=== PATIENT | female | born 1995 | race Two or more races ===

== ENCOUNTER → 2022-10-29 | Outpatient (REF) | payer OTHER | LOC: M SFHCWAGY 16:49 | PROVIDERS: ATTEND Nurse Practitioner Family | DX: Z12.4 Encounter for screening for malignant neoplasm of cervix (principal) ==

== ENCOUNTER → 2023-02-09 | Outpatient (CLI) | payer OTHER ==
[2023-02-09 13:54] LABS: BASO % 0.4 % (0.0-1.0); EOS # 0.2 10^3/uL (0.0-0.5); EOS % 2.9 % (0.0-3.0); HEMATOCRIT 43.4 % (36.0-47.0); HEMOGLOBIN 13.9 g/dl (12.0-15.5); LYMPH # 2.8 10^3/uL (1.5-5.0); LYMPH % 41.2 % (24.0-44.0); MEAN CORPUSCULAR HEMOGLOBIN 28.7 pg (27.0-33.0); MEAN CORPUSCULAR VOLUME 89.5 fl (80.0-96.0); MONO # 0.6 10^3/uL (0.0-0.8); MONO % 9.1 % (2.0-8.0); NEUTROPHILS # 3.1 10^3/uL (1.5-8.5); NEUTROPHILS % 46.1 % (36.0-66.0); PLATELET COUNT, AUTOMATED 267 10^3/uL (150-450); RED BLOOD COUNT 4.85 10^6/uL (4.00-5.40); WHITE BLOOD COUNT 6.8 10^3/uL (4.0-10.0)
[2023-02-09 13:56] LABS: THYROID STIMULATING HORMONE 1.821 uIU/ML (0.55-4.78)
[2023-02-09 13:57] LABS: ALBUMIN 4.1 G/DL (3.2-5.2); ALKALINE PHOSPHATASE 45 U/L (46-116); ALT/SGPT 12 U/L (7.0-40); AST/SGOT < 8 U/L (<34); BILIRUBIN,TOTAL 0.6 MG/DL (0.3-1.2); BLOOD UREA NITROGEN 14 MG/DL (9-23); CALCIUM LEVEL 8.8 MG/DL (8.5-10.1); CARBON DIOXIDE LEVEL 28 MMOL/L (20-31); CHLORIDE LEVEL 104 MMOL/L (98-107); CHOLESTEROL LEVEL 165 MG/DL (<200); CREATININE FOR GFR 0.75 MG/DL (0.55-1.30); FREE T4 0.97 NG/DL (0.89-1.76); GLOMERULAR FILTRATION RATE > 60.0 (>60); GLUCOSE, FASTING 94 MG/DL (60-100); HDL CHOLESTEROL 60.9 MG/DL (>40); LDL CHOLESTEROL 87.5 MG/DL (<100); NON-HDL-C 104.1 MG/DL; POTASSIUM SERUM 4.7 MMOL/L (3.5-5.1); SODIUM LEVEL 138 MMOL/L (136-145); TOTAL 25(OH) VITAMIN D 31.3 NG/ML (20.0-100.0); TRIGLYCERIDES LEVEL 83 MG/DL (<150)
[2023-02-09 13:58] LABS: VITAMIN B12 LEVEL 472 PG/ML (211-911)
== END ==
LOC: M PLAIMG 09:56 → M PLALAB 09:56
PROVIDERS: ATTEND Nurse Practitioner Family
DX: M54.2 Cervicalgia (principal)

== ENCOUNTER → 2023-08-31 | Outpatient (CLI) | payer OTHER | LOC: M WHC 10:12 | PROVIDERS: ATTEND Nurse Practitioner Family | DX: N63.24 Unspecified lump in the left breast, lower inner quadrant (principal) ==

== ENCOUNTER 2023-10-06 07:11 | Day surgery (SDC) | payer OTHER ==
[~2023-10-06] VITALS: Ht 167.6 cm; Wt 62.1 kg
[2023-10-06] MEDS ORDERED: LR 1,000 ML IV SCH ×2 (07:40→10:25)
[2023-10-06] MEDS ORDERED: propofoL 200 MG/20 ML VIAL As Ordered ONE (08:00)
[2023-10-06] MEDS ORDERED: ROCURONIUM BROMIDE 50MG/5ML VIAL As Ordered ONE (08:00)
[2023-10-06] MEDS ORDERED: LIDOCAINE 2% 100MG/5ML SDV (FOR ANES.) As Ordered ONE (08:00)
[2023-10-06] MEDS ORDERED: fentaNYL 100 MCG/2 ML INJECTION As Ordered ONE (08:00)
[2023-10-06] MEDS ORDERED: ONDANSETRON 4MG 2ML VIAL As Ordered ONE (08:00)
[2023-10-06] MEDS ORDERED: MIDAZOLAM INJ 2MG/2ML VIAL As Ordered ONE (08:00)
[2023-10-06] MEDS ORDERED: dexmedeTOMIDine (4MCG/ML)200MCG/50ML BTL (PRECEDEX) As Ordered ONE (08:08)
[2023-10-06] MEDS ORDERED: ACETAMINOPHEN 1000MG 100ML IV BAG As Ordered ONE (08:17)
[2023-10-06] MEDS ORDERED: METHYLENE BLUE 0.5% (5MG/ML) 10 ML AMP (PROVAYBLUE) As Ordered ONE (09:07)
[2023-10-06] MEDS ORDERED: EPINEPHrine 1MG/ML INJ 30ML MD-VIAL As Ordered ONE (09:07)
[2023-10-06] MEDS ORDERED: LIDOCAINE W/EPINEPHRINE 1% 20ML VIAL As Ordered ONE (09:07)
[2023-10-06] MEDS ORDERED: SODIUM CHLORIDE 0.9% NASAL GEL 15GM (AYR) As Ordered ONE (09:07)
[2023-10-06] MEDS ORDERED: SUGAMMADEX SODIUM 500 MG/5 ML VIAL (BRIDION) As Ordered ONE (09:39)
[2023-10-06] MEDS ORDERED: fentaNYL 100 MCG/2 ML INJECTION IV PRN (10:25)
[2023-10-06] MEDS ORDERED: ONDANSETRON 4MG 2ML VIAL IV PRN (10:25)
[2023-10-06] MEDS ORDERED: oxyCODONE 5MG TAB PO PRN (10:25)
[2023-10-06 11:37] VITALS: BP 110/68; TEMP 97.9; O2SAT 97
== END 2023-10-06 11:51 | disposition home or self-care (01) ==
LOC: M SDC 07:11
PROVIDERS: ATTEND Otolaryngology
DX: J34.2 Deviated nasal septum (principal); J34.3 Hypertrophy of nasal turbinates; R09.81 Nasal congestion; Z88.1 Allergy status to other antibiotic agents
CPT/HCPCS: 30520; 30802; 81025; 88300; J0131; J0171; J1100; J2250; J2405; J3010; Q9968

== ENCOUNTER → 2023-10-31 | Outpatient (REF) | payer OTHER | LOC: M SFHCWAGY 13:10 | PROVIDERS: ATTEND Nurse Practitioner Family | DX: Z12.4 Encounter for screening for malignant neoplasm of cervix (principal); Z11.51 Encounter for screening for human papillomavirus (HPV) | CPT/HCPCS: 87624; G0123 ==

== ENCOUNTER → 2023-11-02 | Outpatient (CLI) | payer OTHER | LOC: M WHC 07:47 | PROVIDERS: ATTEND Nurse Practitioner Family | DX: N94.10 Unspecified dyspareunia (principal) ==

== ENCOUNTER → 2023-11-10 | Outpatient (CLI) | payer OTHER ==
[~2023-11-10] MED LIST: PROHANCE 279.3MG/ML 15ML VIAL ONE
== END ==
LOC: M PLAIMG 14:31
PROVIDERS: ATTEND Nurse Practitioner Family
DX: D25.9 Leiomyoma of uterus, unspecified (principal); R93.5 Abnormal findings on diagnostic imaging of other abdominal regions, including retroperitoneum
CPT/HCPCS: 72197; A9576

== ENCOUNTER → 2023-12-07 | Outpatient (REF) | payer OTHER | LOC: M LAB REF 15:35 | PROVIDERS: ATTEND Surgery | DX: L72.3 Sebaceous cyst (principal) ==

== ENCOUNTER 2024-02-27 09:18 | Observation (INO) | payer OTHER ==
[~2024-02-27] VITALS: Ht 167.6 cm; Wt 60.5 kg
[~2024-02-27 09:18] MED LIST changes: +LR 1,000 ML IV SCH; -PROHANCE 279.3MG/ML 15ML VIAL ONE; +VITA-168 PO; +VITA500C24 PO
[2024-02-27] MEDS ORDERED: LR 1,000 ML IV SCH ×2 (09:25→15:50)
[2024-02-27 09:59] LABS: HEMATOCRIT 33.3 % (36.0-47.0); HEMOGLOBIN 10.4 g/dl (12.0-15.5); MEAN CORPUSCULAR HEMOGLOBIN 23.5 pg (27.0-33.0); MEAN CORPUSCULAR HGB CONC 31.2 g/dl (32.0-36.5); MEAN CORPUSCULAR VOLUME 75.3 fl (80.0-96.0); PLATELET COUNT, AUTOMATED 363 10^3/uL (150-450); RED BLOOD COUNT 4.42 10^6/uL (4.00-5.40); WHITE BLOOD COUNT 5.7 10^3/uL (4.0-10.0)
[2024-02-27] MEDS ORDERED: MIDAZOLAM INJ 2MG/2ML VIAL As Ordered ONE (10:24)
[2024-02-27] MEDS ORDERED: LIDOCAINE 2% 100MG/5ML SDV (FOR ANES.) As Ordered ONE (10:24)
[2024-02-27] MEDS ORDERED: fentaNYL 100 MCG/2 ML INJECTION As Ordered ONE (10:24)
[2024-02-27] MEDS ORDERED: ONDANSETRON 4MG 2ML VIAL As Ordered ONE (10:24)
[2024-02-27] MEDS ORDERED: ROCURONIUM BROMIDE 50MG/5ML VIAL As Ordered ONE (10:24)
[2024-02-27] MEDS ORDERED: propofoL 200 MG/20 ML VIAL As Ordered ONE (10:24)
[2024-02-27] MEDS ORDERED: dexmedeTOMIDine (4MCG/ML)200MCG/50ML BTL (PRECEDEX) As Ordered ONE (10:52)
[2024-02-27] MEDS ORDERED: HYDROMORPHONE HCL 0.5 MG/ 0.5 ML SYRINGE IV PRN (11:50)
[2024-02-27] MEDS ORDERED: ONDANSETRON 4MG 2ML VIAL IV PRN ×2 (11:50→15:55)
[2024-02-27] MEDS ORDERED: oxyCODONE 5MG TAB PO PRN (11:50)
[2024-02-27] MEDS ORDERED: fentaNYL 100 MCG/2 ML INJECTION IV PRN (11:50)
[2024-02-27] MEDS: LR 1,000 ML IV SCH ×3 (11:50→15:55)
[2024-02-27] MEDS ORDERED: ACETAMINOPHEN 1000MG 100ML IV BAG As Ordered ONE (12:23)
[2024-02-27] MEDS ORDERED: SUGAMMADEX SODIUM 500 MG/5 ML VIAL (BRIDION) As Ordered ONE (12:35)
[2024-02-27] MEDS ORDERED: KETOROLAC 60MG 2ML VIAL As Ordered ONE (12:35)
[2024-02-27] MEDS ORDERED: ePHEDrine SULFATE 25 MG/5 ML(5MG/ML) SYRINGE As Ordered ONE (15:14)
[2024-02-27] MEDS ORDERED: METOCLOPRAMIDE INJ 10MG/2ML VIAL IV PRN (15:45)
[2024-02-27] MEDS: ONDANSETRON 4MG 2ML VIAL IV PRN (15:50)
[2024-02-27] MEDS: fentaNYL 100 MCG/2 ML INJECTION IV PRN (15:51)
[2024-02-27] MEDS ORDERED: PERCOCET 5MG/325MG TAB PO PRN ×2 (15:55)
[2024-02-27] MEDS: HYDROMORPHONE HCL 0.5 MG/ 0.5 ML SYRINGE IV PRN (16:25)
[2024-02-27] MEDS: oxyCODONE 5MG TAB PO PRN (16:34)
[2024-02-27 17:20] VITALS: BP 115/58; TEMP 98.5; O2SAT 99
[2024-02-27 17:50] VITALS: BP 116/58; TEMP 98.6; O2SAT 100
[2024-02-27 18:50] VITALS: BP 112/59; TEMP 98.4; O2SAT 100
[2024-02-27 20:00] VITALS: BP 110/57; TEMP 99.8; O2SAT 99
[2024-02-27] MEDS: KETOROLAC 30 MG/ML 1ML VIAL IV PRN (20:39)
[2024-02-27] MEDS: DOCUSATE SODIUM 100MG CAPSULE PO SCH (20:39)
[2024-02-27 21:00] VITALS: BP 112/58; TEMP 99.2; O2SAT 99
[2024-02-27 23:00] VITALS: BP 100/58; TEMP 99.4; O2SAT 99
[2024-02-27] MEDS: PERCOCET 5MG/325MG TAB PO PRN (23:48)
[2024-02-28] VITALS (8 sets, daily range): BP systolic 109–124; BP diastolic 57–69; TEMP 98.2–99.7; O2SAT 98–100
[2024-02-28 05:53] LABS: HEMATOCRIT 22.4 % (36.0-47.0); MEAN CORPUSCULAR HEMOGLOBIN 23.7 pg (27.0-33.0); MEAN CORPUSCULAR HGB CONC 31.7 g/dl (32.0-36.5); MEAN CORPUSCULAR VOLUME 74.7 fl (80.0-96.0); WHITE BLOOD COUNT 10.1 10^3/uL (4.0-10.0)
[2024-02-28 05:57] LABS: HEMOGLOBIN 7.1 g/dl (12.0-15.5)
[2024-02-28 05:58] LABS: PLATELET COUNT, AUTOMATED 242 10^3/uL (150-450)
[2024-02-28] MEDS ORDERED: NS 1,000 ML IV SCH (07:40)
[2024-02-28] MEDS ORDERED: HOME MED LIST COMPLETE! XX SCH (11:35)
[2024-02-28] MEDS ORDERED: OXYC1TAB23 PO (13:57)
[2024-02-28] MEDS ORDERED: IBUP-1022 PO (13:57)
[2024-02-28] MEDS ORDERED: COLA100C5 PO (13:57)
== END 2024-02-28 14:40 | disposition home or self-care (01) ==
LOC: M SDC 09:18 → M PED 09:19
PROVIDERS: ADMIT Specialist; ATTEND Specialist
DX: N93.9 Abnormal uterine and vaginal bleeding, unspecified (principal); R10.2 Pelvic and perineal pain; D25.9 Leiomyoma of uterus, unspecified; Z88.1 Allergy status to other antibiotic agents; Z91.018 Allergy to other foods
CPT/HCPCS: 36415; 36430; 58546; 81025; 85027; 86850; 86900; 86901; 86920; 88305; 96375; 96376; J0131; J0665; J1100; J1170; J1885; J2250; J2405; J3010; P9016; S2900

== ENCOUNTER → 2024-04-25 | Outpatient (CLI) | payer OTHER ==
[~2024-04-25] MED LIST changes: +COLA100C5 PO; +IBUP-1022 PO; -LR 1,000 ML IV SCH; +OXYC1TAB23 PO
[2024-04-25 12:56] LABS: HEMATOCRIT 35.7 % (36.0-47.0); HEMOGLOBIN 10.9 g/dl (12.0-15.5); MEAN CORPUSCULAR HEMOGLOBIN 22.9 pg (27.0-33.0); MEAN CORPUSCULAR HGB CONC 30.5 g/dl (32.0-36.5); MEAN CORPUSCULAR VOLUME 74.8 fl (80.0-96.0); PLATELET COUNT, AUTOMATED 286 10^3/uL (150-450); RED BLOOD COUNT 4.77 10^6/uL (4.00-5.40); WHITE BLOOD COUNT 9.1 10^3/uL (4.0-10.0)
== END ==
LOC: M PLALAB 11:17
PROVIDERS: ATTEND Family Medicine
DX: D50.0 Iron deficiency anemia secondary to blood loss (chronic) (principal)

== ENCOUNTER → 2024-10-19 | Outpatient (CLI) | payer OTHER ==
[2024-10-19 18:26] LABS: HEMATOCRIT 36.4 % (36.0-47.0); HEMOGLOBIN 11.3 g/dl (12.0-15.5); MEAN CORPUSCULAR VOLUME 77.3 fl (80.0-96.0); PLATELET COUNT, AUTOMATED 352 10^3/uL (150-450); RED BLOOD COUNT 4.71 10^6/uL (4.00-5.40); WHITE BLOOD COUNT 7.9 10^3/uL (4.0-10.0)
[2024-10-19 18:56] LABS: HEMOGLOBIN A1c 5.2 % (4.0-6.0)
[2024-10-19 18:58] LABS: PERCENT SATURATION 2.8 % (13.2-45.0)
== END ==
LOC: M PLALAB 15:18
PROVIDERS: ATTEND Student in an Organized Health Care Education/Training Program
DX: D50.0 Iron deficiency anemia secondary to blood loss (chronic) (principal); Z13.1 Encounter for screening for diabetes mellitus

== ENCOUNTER → 2024-11-01 | Outpatient (REF) | payer OTHER ==
[2024-11-01 14:10] LABS: Trichomonas vaginalis (AMP) NOT DETECTED (NEGATIVE)
[2024-11-01 14:33] LABS: GC DNA AMPLIFICATION NEGATIVE (NEGATIVE)
[2024-11-03 16:06] LABS: HPV APTIMA Not Detected (Not Detected)
== END ==
LOC: M SFHCWAGY 12:37
PROVIDERS: ATTEND Nurse Practitioner Family
DX: Z12.4 Encounter for screening for malignant neoplasm of cervix (principal); Z11.3 Encounter for screening for infections with a predominantly sexual mode of transmission
CPT/HCPCS: 87624; 87661; 87810; 87850; G0123